=== PATIENT | male | born 1955 | race Caucasian/White ===

== ENCOUNTER 2016-03-20 18:35 | Emergency (ER) | payer MEDICAID, OTHER ==
[~2016-03-20] VITALS: Ht 177.8 cm; Wt 86.5 kg
[2016-03-20 18:39] VITALS: Ht 177.8 cm; Wt 86.5 kg
[2016-03-20] MEDS ORDERED: hydrALAzine 20 MG INJ IV ONE (21:00)
[2016-03-20 21:16] LABS: BASOPHILS % 0.4 % (0.0-2.0); EOSINOPHILS # 0.2 10^3/ul (0.0-0.5); EOSINOPHILS % 2.8 % (0.0-7.0); HEMATOCRIT 42.7 % (42.0-52.0); HEMOGLOBIN 14.7 g/dl (14.0-18.0); LYMPHOCYTES # 2.2 10^3/ul (0.8-2.9); LYMPHOCYTES % 26.6 % (15.0-51.0); MEAN CORPUSCULAR HEMOGLOBIN 30.1 pg (29.0-33.0); MEAN CORPUSCULAR HGB CONC 34.4 g/dl (32.0-37.0); MEAN CORPUSCULAR VOLUME 87.5 fl (82.0-101.0); MEAN PLATELET VOLUME 9.4 fl (7.4-10.4); MONOCYTE # 0.5 10^3/ul (0.3-0.9); MONOCYTES % 5.4 % (0.0-11.0); NEUTROPHIL # 5.4 10^3/ul (1.6-7.5); NEUTROPHILS % 64.8 % (39.0-77.0); PLATELET COUNT 159 10^3/UL (140-440); RED BLOOD COUNT 4.89 10^6/ul (4.70-6.10); RED CELL DISTRIBUTION WIDTH 13.8 % (11.5-14.5); UNCORRECTED WBC 8.4 10^3/ul (4.8-10.8); WHITE BLOOD COUNT 8.4 10^3/ul (4.8-10.8)
[2016-03-20 21:24] LABS: ALBUMIN 4.5 g/dl (3.3-4.9)
[2016-03-20 21:25] LABS: POTASSIUM 4.1 mmol/L (3.5-5.1)
[2016-03-20 21:27] LABS: ALBUMIN/GLOBULIN RATIO 1.32; BILIRUBIN,INDIRECT 0.5 mg/dl (0-1.1); BILIRUBIN,TOTAL 0.5 mg/dl (0.2-1.3); CONDITION 1; CREATININE 0.76 mg/dl (0.61-1.24); TOTAL PROTEIN 7.9 g/dl (6.1-8.1)
[2016-03-20 21:28] LABS: CALCIUM 9.1 mg/dl (8.4-10.2)
--- NOTE | 2016-03-20 21:54 | ERA ---
ER Documentation Chief Complaint Date/Time DATE: 03/20/16 TIME: 21:52 Chief Complaint epistaxis once at 4pm HPI This is a 61-year-old male who presents to the emergency room for evaluation of a nosebleed. This patient states that he developed a nosebleed 4 PM and states that he is holding pressure, and it finally stopped while this patient was in the waiting room. The patient denies any trauma to the area, denies being on any blood thinners, came to the emergency room today for evaluation with his daughters. ROS All systems reviewed and are negative except as per history of present illness. 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) Hx Alcohol Use: Yes (3-4BEERS/WEEKEND) Hx Substance Use: No Hx Tobacco Use: No Smoking Status: Never smoker Physical Exam Vitals Vital Signs Date Time Temp Pulse Resp B/P Pulse Ox O2 Delivery O2 Flow Rate FiO2 03/20/16 21:29 96 17 148/92 100 Room Air 03/20/16 21:04 88 17 163/109 100 Room Air 03/20/16 18:39 97.8 98 20 168/103 97 Physical Exam INITIAL VITAL SIGNS: Reviewed by me GENERAL: The patient is well developed and appropriate for usual state of health in no apparent distress HEENT: Dry blood at the right nostril, no signs of septal hematoma in right nostril, or left nostril, no active bleeding, no signs of posterior bleed pupils equal, round, and reactive to light. EOMI. There is no scleral icterus. NECK: C-spine is soft and supple, there is no meningismus. There is no cervical lymphadenopathy. LUNGS: Clear to auscultation bilaterally. There are no rales, wheezes or rhonchi. HEART: Regular rate and rhythm, no murmurs, clicks, rubs or gallops. ABDOMEN: Soft, non-tender, non-distended. There are bowel sounds in all four quadrants. No rebound or guarding. EXTREMITIES: There is no peripheral cyanosis or edema. No focal swelling or erythema. NEUROLOGICAL: The patient moves all four extremities with 5/5 strength. Cranial nerves II - XII are intact. Normal gait. Alert and oriented SKIN: There is no apparent rash or petechiae. HEME/LYMPHATIC: There is no evidence of excessive bruising or lymphedema. PSYCHIATRIC: The patient does not appear anxious or depressed. Result Diagram: 03/20/16202403/20/162024 Results 24 hrs Laboratory Tests Test 03/20/16 20:25 Alanine Aminotransferase (ALT/SGPT) 29IU/L Albumin 4.5g/dl Albumin/Globulin Ratio 1.32 Alkaline Phosphatase 108IU/L Anion Gap 18 Aspartate Amino Transf (AST/SGOT) 23IU/L Basophils # 0.010^3/ul Basophils % 0.4% Blood Urea Nitrogen 18mg/dl Calcium Level 9.1mg/dl Carbon Dioxide Level 26mmol/L Chloride Level 102mmol/L Creatinine 0.76mg/dl Direct Bilirubin 0.00mg/dl Eosinophils # 0.210^3/ul Eosinophils % 2.8% Globulin 3.40g/dl Glucose Level 164mg/dl Hematocrit 42.7% Hemoglobin 14.7g/dl Indirect Bilirubin 0.5mg/dl Lipase 125U/L Lymphocytes # 2.210^3/ul Lymphocytes % 26.6% Mean Corpuscular Hemoglobin 30.1pg Mean Corpuscular Hemoglobin Concent 34.4g/dl Mean Corpuscular Volume 87.5fl Mean Platelet Volume 9.4fl Monocytes # 0.510^3/ul Monocytes % 5.4% Neutrophils # 5.410^3/ul Neutrophils % 64.8% Nucleated Red Blood Cells # 0.010^3/ul Nucleated Red Blood Cells % 0.0/100WBC Platelet Count 77083^3/UL Potassium Level 4.1mmol/L Red Blood Count 4.8910^6/ul Red Cell Distribution Width 13.8% Sodium Level 142mmol/L Total Bilirubin 0.5mg/dl Total Protein 7.9g/dl White Blood Count 8.410^3/ul Current Medications Medications (Trade) Dose Ordered Sig/Rafi Route PRN Reason Start Time Stop Time Status Last Admin Dose Admin Hydralazine HCl (Apresoline) 10 mg ONCE ONCE IV 03/20/16 21:00 03/20/16 21:01 DC 03/20/16 21:10 Procedures/MDM This 61-year-old male presents to the emergency room for evaluation of epistaxis. This patient did have a nasal clamp given to him while he was in the waiting room, and when I evaluated him he had no signs of active bleeding. No signs of septal hematoma, no signs of posterior bleeding, however I did note that his blood pressure was extremely elevated at 163/109. The patient had lab work drawn which does not show any signs of endorgan damage, he was given 10 mg of hydralazine IV, and his blood pressure is 148/50 at this time. This patient has a hemoglobin of 15, hemodynamically stable at this time will be discharged home with a prescription for hydrochlorothiazide to start at this time until he can see his primary care physician. Departure Diagnosis: Primary Impression: Epistaxis Condition: Stable EMILY DUPREE DO Mar 20, 2016 21:54
[2016-03-20] MEDS ORDERED: HYDR12.58 PO (21:58)
[2016-03-20 22:05] VITALS: BP 141/90; PULSE 88; RESP 18
== END 2016-03-20 22:05 | disposition home or self-care (01) ==
LOC: E/R 18:35
DX: R04.0 Epistaxis (principal); I10 Essential (primary) hypertension
CPT/HCPCS: 36415; 80053; 83690; 85025; 96374; J0360; Z7502

== ENCOUNTER 2016-03-26 07:30 | Emergency (ER) | payer MEDICAID ==
[~2016-03-26] VITALS: Ht 177.8 cm; Wt 88.0 kg
[~2016-03-26 07:30] MED LIST: HYDR12.58 PO
[2016-03-26 07:33] VITALS: Ht 177.8 cm; Wt 88.0 kg
[2016-03-26] MEDS ORDERED: AMOX1TAB10 PO (08:01)
[2016-03-26 08:33] VITALS: BP 143/88; PULSE 99; RESP 18; TEMP 98
--- NOTE | 2016-03-26 09:24 | ERD ---
ER Documentation Chief Complaint Date/Time DATE: 03/26/16 TIME: 09:22 Chief Complaint NOSE BLEED TODAY HPI Patient is a 61-year-old male with hypertension and diabetes who presents with a nosebleed. The patient has had a few episodes of nosebleeding over the past few days but today when the nosebleed started at 1 AM he said it was "a lot of blood". He denies trauma. Upon review of old medical records he had one previous visit on March 20 for the same. Laboratory studies at that time were normal. He does not currently have a primary doctor. He does not take blood thinning medications. ROS All systems reviewed and are negative except as per history of present illness. 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 Resp: Clear to auscultation bilaterally Cardio: Regular rate and rhythm, no murmurs Abd: Soft, non tender, non distended. Normal bowel sounds Skin: No petechiae or rashes Back: No midline or flank tenderness Ext: No cyanosis, or edema Neur: Awake and alert Psych: Normal Mood and Affect Procedures/MDM Nasal packing procedure: The patient had a 5.5 anterior Rhino Rocket placed into the right nares. Surgilube was used prior to placement. The Rhino Rocket was then filled with normal saline for tamponade. The patient tolerated the entire procedure. Hemostasis was achieved. Patient is a 61-year-old male who presents with a nosebleed. I believe this is anterior nosebleed. He had a nasal packing placed to the right nares and this has stopped the bleeding. I believe outpatient management is appropriate. The patient is otherwise well-appearing. There is no bleeding in the oropharynx after nasal packing. The patient can return for any worsening symptoms. I doubt posterior nosebleed. He denies trauma. Departure Diagnosis: Primary Impression: Epistaxis Condition: Fair Patient Instructions: Epistaxis (Adult) Referrals: WILLOW LEVI MD Additional Instructions: Specialist:Usted tiene vera condicin mdica que requiere que yani a un especialista dentro de los prximos 1-2 sprague.POR FAVOR,CON ROMO SEGUIMIENTO DE PRIMARIA PHSICIAN refferal. SI USTED NO TIENE UN MDICO GENERAL Y / O USTED NO PUEDE PAGAR alonso a un mdico,los siguientes mendez RECURSOS sido suministrado a usted. ES ROMO RESPONSABILIDAD PARA SER VISTOS POR EL ESPECIALISTA: ZEFERINO ROBERTSON MD Mar 26, 2016 09:23
== END 2016-03-26 08:36 | disposition home or self-care (01) ==
LOC: E/R 07:30
DX: R04.0 Epistaxis (principal); I10 Essential (primary) hypertension; E11.9 Type 2 diabetes mellitus without complications; Z87.891 Personal history of nicotine dependence
CPT/HCPCS: 30903; Z7502

== ENCOUNTER 2016-03-29 10:37 | Emergency (ER) | payer MEDICAID ==
[~2016-03-29] VITALS: Ht 180.3 cm; Wt 87.0 kg
[~2016-03-29 10:37] MED LIST changes: +AMOX1TAB10 PO
[2016-03-29 10:45] VITALS: Ht 180.3 cm; Wt 87.0 kg
--- NOTE | 2016-03-29 12:12 | ERD ---
ER Documentation Chief Complaint Date/Time DATE: 03/29/16 TIME: 12:04 Chief Complaint epistaxis earlier, resolved now HPI Patient is a 59-year-old male with a past medical history of hypertension, hyperlipidemia who presents to the emergency department with concerns of epistaxis which has now resolved. Patient's daughter was used as a installer apprentice. Patient states that this is his third episode of epistaxis this month, and his third visit to the ED. Patient was seen by Dr. Manoj Albarran, ENT, 4 days ago and underwent a cautery procedure. Since then patient denies any bleeding until this morning. Patient states that his nose starting bleeding this morning while reading the newspaper. No bleeding currently, bleeding has completely resolved.. Patient states he used Afrin spray at that time. Patient states that the bleeding lasted approximately 15-20 minutes. Patient denies any fever, chills, nausea, vomiting, dizziness or loss of consciousness. Patient is not currently taking any blood thinners. Patient denies any trauma or nose picking. ROS All systems reviewed and are negative except as per history of present illness. Medications Home Meds Active Scripts Amoxicillin/Potassium Clav (Amox-Clav 875-125 mg Tablet) 875-125 mg Tab, 1 TAB PO BID for 7 Days, #14 TAB Prov:ZEFERINO ROBERTSON MD 03/26/16 Hydrochlorothiazide* (Hydrochlorothiazide*) 12.5 Mg Tablet, 12.5 MG PO BID, #28 TAB Prov:EMILY DUPREE DO 03/20/16 Allergies Allergies: Coded Allergies: No Known Allergy (Unverified , 03/26/16) PMhx/Soc History of Surgery: No Anesthesia Reaction: No Hx Neurological Disorder: No Hx Respiratory Disorders: No Hx Cardiac Disorders: Yes (HTN, cholesterol) Hx Psychiatric Problems: No Hx Miscellaneous Medical Probl: Yes (per previous report: BRAIN DAMAGE FROM A FALL) Hx Alcohol Use: Yes (3-4BEERS/WEEKEND) Hx Substance Use: No Hx Tobacco Use: Yes (quit 5 years ago) Smoking Status: Former smoker Physical Exam Vitals Vital Signs Date Time Temp Pulse Resp B/P Pulse Ox O2 Delivery O2 Flow Rate FiO2 03/29/16 10:45 98.0 88 18 153/71 99 Physical Exam GENERAL: Well-developed, well-nourished male. Appears in no acute distress. HEAD: Normocephalic, atraumatic. No deformities or ecchymosis. EYE: Pupils equal, round, and reactive to light. EOMs intact. No conjunctival erythema. No scleral icterus. No eye discharge. ENT: External ear without any masses or tenderness. Auditory canals clear bilaterally. TM visualized bilaterally, non-erythematous, non-bulging. Nasal mucosa pink with no discharge. No signs of active bleeding. Oropharynx is pink without any tonsillar erythema or exudates. No blood noted in posterior oropharynx.. No uvula deviation. No kissing tonsils. NECK: Supple. No lymphadenopathy or thyromegaly. No meningismus. No JVD. No bruits. Trachea midline. LUNG: Clear to auscultation bilaterally. No rhonchi, wheezing, rales or coarse breath sounds. HEART: Regular rate and rhythm. No murmurs, rubs or gallops. ABDOMEN: Soft, nontender, and nondistended. Positive bowel sounds in all four quadrants. No rebound tenderness, no guarding. (-) McBurney's point tenderness. No CVA tenderness. : deferred BACK: No midline tenderness. EXTREMITES: Equal pulses bilaterally. No peripheral clubbing, cyanosis or edema. No unilateral leg swelling. NEUROLOGIC: Alert and oriented to person, place and time. Moving all four extremities. 5/5 strength in all extremities. Normal speech. Steady gait. (-) Brudzinski sign- no flexion of the hips and knees noted with neck flexion. (-) Kernigs sign- patient able to extend knee to 180 degrees with hip flexion, no hamstring stiffness noted. SKIN: Normal color. Warm and dry. No rashes or lesions. Procedures/MDM MEDICAL DECISION MAKING: Patient is a 59 year male who presents with an episode of epistaxis earlier today which is now resolved. Patient underwent cautery procedure four days and denies any bleeding until today. Patient did not call ENT specialist today. Patient denies any blood thinner use. At this time, the patients presentation is most consistent with epistaxis, resolved. Low suspicion for anemia given the patient has normal color, no conjunctival pallor and denies blood thinner use. Patient was seen here on 03/20/16 and at that time had normal hemoglobin level. Low suspicion for posterior bleed given that there was no blood noted in the posterior pharynx. Low suspicion for trauma or foreign body. I discussed this case with my supervising physician Dr. Gonzalez, who agrees the patient can be managed on an outpatient basis given that his bleeding has resolved. Patient was advised to contact his ENT, Dr. Albarran, for follow-up visit in the next 1-2 days. DISCHARGE: At this time, patient is stable for discharge and outpatient management.. I have discussed with the patient the possibility of needing to see a specialist for further workup and imaging studies if symptoms persist. I have instructed the patient to promptly return to the ER for any new or worsening symptoms including increased pain, fever, nausea, vomiting, weakness or LOC. The patient and/or family expressed understanding of and agreement with this plan. All questions were answered. Home care instructions were provided. Departure Diagnosis: Primary Impression: Epistaxis Condition: Stable Patient Instructions: Epistaxis (Adult) [facility] Usted se aparicio hecho un examen mdico de control que le indica que no est en vera condicin que requiera tratamiento urgente en el Departamento de Emergencia. Un estudio ms profundo y el tratamiento de coffman condicin pueden esperar sin ningn riesgo hasta que usted sea atendida/o en el consultorio de coffman mdico o vera cl joby. Es responsabilidad suya arreglar vera dawn para el seguimiento del miriam. MANEJO DE CONDICIONES NO URGENTES EN EL FUTURO 1) Si usted tiene un mdico de atencin primaria: Usted debera llamar a coffman mdico de atencin primaria antes de venir al departamento de emergencia. Despus de las horas de consultorio, coffman doctor o coffman asociado/a est disponible por telfono. El mdico o enfermero de kraig en el servicio telefnico puede asesorarle por scot medio para atender el problema, o miriam contrario se puede programar vera dawn. 2) Si usted no tiene un mdico de atencin primaria: Llame al mdico o clnica de referencia que aparece abajo prashant las horas de consultorio para hacer vera dawn para que le vean. CLINICAS: [facility] [phone] [facility] [phone] [facility] [phone] [facility] [phone] [place] [phone] [facility]. [phone] [facility]. [facility] () Usted se aparicio hecho un examen mdico de control que le indica que no est en vera condicin que requiera tratamiento urgente en el Departamento de Emergencia. Un estudio ms profundo y el tratamiento de coffman condicin pueden esperar sin ningn riesgo hasta que usted sea atendida/o en el consultorio de coffman mdico o vera cl joby. Es responsabilidad suya arreglar vera dawn para el seguimiento del miriam. MANEJO DE CONDICIONES NO URGENTES EN EL FUTURO 1) Si usted tiene un mdico de atencin primaria: Usted debera llamar a coffman mdico de atencin primaria antes de venir al departamento de emergencia. Despus de las horas de consultorio, coffman doctor o coffman asociado/a est disponible por telfono. El mdico o enfermero de kraig en el servicio telefnico puede asesorarle por scot medio para atender el problema, o miriam contrario se puede programar vera dawn. 2) Si usted no tiene un mdico de atencin primaria: Llame al mdico o condado institucions de referencia que aparece abajo prashant las horas de consultorio para hacer vera dawn para que le vean. SI USTED NO PUEDE PAGAR PARA MUSA UN MEDICO puede ir a: [facility] [address] [place] [address] [facility] [address] [place] [address] [facility] [address] [place] [address] [facility]A [facility] [address] [place] [place], [place] [id number] Additional Instructions: Llame al doctor/ Dr. Manoj Albarran (ENT) MAANA y teofilo evra DAWN PARA DENTRO DE 1- 2 BEJARANO.Dgale a la secretaria que nosotros le instruimos hacer esta dawn.Avise o llame si coffman condicin se empeora antes de la dawn. Regresa aqui si peor o no mejor. JAZMINE THORNE PA-C Mar 29, 2016 12:12
[2016-03-29 13:25] VITALS: BP 150/71; PULSE 77; RESP 18
== END 2016-03-29 13:26 | disposition home or self-care (01) ==
LOC: FTE 10:37
DX: R04.0 Epistaxis (principal); I10 Essential (primary) hypertension; Z87.891 Personal history of nicotine dependence
CPT/HCPCS: 99282